=== PATIENT | male | born 1935 | race Caucasian/White ===

== ENCOUNTER → 2021-04-16 | Day surgery (SDC) | payer MEDICARE, OTHER ==
[2021-04-12 10:46] VITALS: BMI 25.7
[~2021-04-16] MED LIST: ACETAMINOPHEN IV (For NPO) 1,000 MG in EMPTY BAG 1 BAG IVPB ONE; ACETAMINOPHEN TAB 325 MG TAB PO PRN; LIDOCAINE 1% INJ 10MG/ML (20 ML MDV) SQ ONE; PHENYLEPHRINE-0.9% NACL SYG 1,000 MCG/10 ML SYRINGE ONE; PROPOFOL 10 MG/ML 20 ML VIAL IV ONE; SODIUM CHLORIDE 0.9% 1,000 ML IV SCH; SODIUM CHLORIDE 0.9% 500 ML 500 ML IV ONE; ceFAZolin 1 GM in SODIUM CHLORIDE 0.9% 250 ML IRRIGATION PRN
[2021-04-16 10:48] VITALS: RESP 16; TEMP 98
[2021-04-16 17:58] VITALS: BP 118/75; PULSE 56
--- NOTE | 2021-04-17 16:45 | P.PCN ---
Date of Procedure: 04/16/21 Preoperative Diagnosis: Battery depletion of AICD Postoperative Diagnosis: The same Procedure(s) Performed: Replacement of the battery Description of Procedure: HISTORY: This is a 85-year-old gentleman who had ACD implantation for ventricular tachycardia and nonischemic cardiomyopathy. Recent evaluation showed evidence of battery depletion. Patient is advised to have battery replacement. CONSENT: I have discussed the risks and benefits as related to the above mentioned procedure and both sedation/analgesia as well as necessary blood product administration. The patient has indicated understanding and acceptance of the risks of the procedure discussed. PROCEDURE: Patient was brought to the lab in a fasting state. Patient was given IV Versed and fentanyl for sedation. The skin over the existing pulse generator was infiltrated with lidocaine. An incision was made in the skin and was deepened until the pectoral fascia was exposed. Hemostasis was obtained. The existing pulse generator was pulled out of the pocket. The leads were disconnected and were checked for thresholds. Conscious Sedation: Provided by department of anesthesia Duration 37minutes THRESHOLDS: VENTRICULAR: The minimum patient threshold is 1.25 V at a pulse width of 0.4. R-wave: 4.4 THE LEADS: VENTRICULAR: This is manufactured by [employer]. Model number is [id number]. And the serial number is [id number] THE EXPLANTED DEVICE: This is manufactured by [employer]. The model number is [id number]. THE NEW DEVICE: This is manufactured by [employer] and model number is [id number] and the serial number is capital [id number]. The leads were then connected to a new pulse generator. Pacemaker seems to function normally. The pocket was irrigated with antibiotics. The pocket was closed in the usual fashion. Pectoral fascia was closed with 2-0 Prolene, the subcutaneous tissue was closed with 3-0 Prolene and the skin was closed with 4-0 Prolene. Patient tolerated the procedure well . Patient will be monitored on the telemetry unit for 2-3 hours. If stable patient be discharged home later today. DFT testing: DFT testing was attempted with T shock. Multiple attempts did not induce ventricular fibrillation. PROGRAMMING: Bradycardia programming: This is programmed to VVI mode at a rate of 40 with an output of 2.5 V. Tachycardia Programming 1. The VF zone is programmed to a rate of 207 bpm with initial detect of 30 out of 40 and the direct of 12 out of 16. The therapies are programmed to 40 J 6. The V. tach zone was programmed to a rate of 1 76 bpm. The therapies are programmed to 2. Burst pacing followed by cardioversion with 15 J followed by 30 J followed by 402. The monitor, Pema is programmed to 133. PLAN: Patient will monitor for the next few hours. If stable patient will be discharged home to continue home medication and prophylactic antibiotics FALLOW UP: Dr. Subramanian in 1 week
== END ==
LOC: CATHEP 10:04
PROVIDERS: ATTEND Internal Medicine Cardiovascular Disease
DX: Z45.2 Encounter for adjustment and management of vascular access device (principal); I42.8 Other cardiomyopathies; I47.2 Ventricular tachycardia; Z95.0 Presence of cardiac pacemaker; Z95.810 Presence of automatic (implantable) cardiac defibrillator; Z20.822 Contact with and (suspected) exposure to COVID-19
CPT/HCPCS: 33262; 87635; C1769; C1722; J0690; J2001; J0131; J2370; J2704